=== PATIENT | male | born 1980 | race Caucasian/White ===

== ENCOUNTER 2018-03-16 14:03 | Inpatient (IN) | payer OTHER ==
[2018-03-16] MEDS ORDERED: PNEUMOC 13-VAL CONJ-DIP CRM/PF 0.5 ML DISP.SYRIN IM ONE (14:27)
--- NOTE | 2018-03-16 14:41 | HP ---
Psychiatrist Admission - Data Date of interview: 03/16/18 Admission source: 3N Identifying data: This is the first [facility] inpatient rehabilitation admission for this 38 years old single [place] male, father of a 14 years old son, unemployed with no source of income, homeless Medical History: Unremarkable. Smokes cigaretes 1 ppd Psychiatric History: Denies history of previous psychiatric treatment Physical/Sexual Abuse/Trauma History: Denies history of emotional, physical or sexual abuse as well as DV relationship. No service Additional Comment: Reports history of multiple previous misdemranor arrests Allergies/Adverse Reactions: Allergies Allergy/AdvReac Type Severity Reaction Status Date / Time No Known Allergies Allergy Verified 03/16/18 14:46 Date of last physical exam: 03/11/18 Concur with the findings of this exam: Yes - Substance Abuse/Tx History Hx Alcohol Use: Yes Hx Substance Use: Yes Substance Use Type: Alcohol (Started drinking alcohol at age 13, consumes a 6pk of beer daily. Last drank on 03/11/18), Heroin (Started using heroin at age 27, consumes 10 bags daily. Last used on 03/10/18), Marijuana (Started smoking marijuana at age 12, consumes one gram daily. Last smoked on 03/10/18) Hx Substance Use Treatment: Yes (2 previous inpt detox & 6 inpt rehab admissions ) Mental Status Exam - Mental Status Exam Alert and Oriented to: Time, Place, Person Cognitive Function: Fair Patient Appearance: Well Groomed Mood: Anxious Patient Behavior: Cooperative Speech Pattern: Clear Voice Loudness: Normal Thought Process: Intact Hallucinations: Denies Suicidal Ideation: Denies Homicidal Ideation: Denies Insight/Judgement: Fair Sleep: Poorly Appetite: Good Muscle strength/Tone: Normal Gait/Station: Normal Psychiatric Findings - Problem List ([place] 1, 2,3) (1) Alcohol dependence Current Visit: Yes Status: Acute (2) Opioid dependence Current Visit: Yes Status: Acute (3) Cannabis dependence Current Visit: Yes Status: Acute (4) Nicotine dependence Current Visit: Yes Status: Chronic (5) Substance-induced anxiety disorder Current Visit: Yes Status: Acute (6) Substance-induced sleep disorder Current Visit: Yes Status: Acute - Initial Treatment Plan Initial Treatment Plan: 1) Start Melatonin 5 mg po HS prn for insomnia. 2) Monitor progress
[2018-03-16] MEDS ORDERED: MELATONIN 5 MG TABLETS PO PRN (14:57)
[2018-03-16] MEDS ORDERED: MAG HYDROX/AL HYDROX/SIMETH 30 ML UNIT-DOSE CUP PO PRN (15:35)
[2018-03-16] MEDS ORDERED: MAGNESIUM CITRATE 300 ML BOTTLE PO PRN (15:35)
[2018-03-16] MEDS ORDERED: guaiFENesin/D-METHORPHAN HB 10 ML UNIT-DOSE CUPS PO PRN (15:35)
[2018-03-16] MEDS ORDERED: IBUPROFEN 400 MG TABLET (FP) PO PRN (15:35)
[2018-03-16] MEDS ORDERED: ACETAMINOPHEN 325 MG TABLET (FP) PO PRN (15:35)
[2018-03-16] MEDS ORDERED: MENTHOL/PHENOL 1 EACH UD MM PRN (15:35)
[2018-03-16] MEDS ORDERED: hydrOXYzine PAMOATE 50 MG CAPSULE (FP) PO PRN (15:35)
[2018-03-16] MEDS ORDERED: LOPERAMIDE HCL 2 MG CAPSULE PO PRN (15:35)
[2018-03-16] MEDS ORDERED: MAGNESIUM HYDROX 2400MG/30ML ORAL SUSPENSION 30 ML CUP PO PRN (15:35)
[2018-03-16] MEDS ORDERED: P-EPHED 60MG/TRIPROLIDI 2.5MG TABLET PO PRN (15:35)
[2018-03-16] MEDS: THIAMINE HCL 100 MG TABLET (FP) PO SCH (21:37)
[2018-03-16] MEDS: MELATONIN 5 MG TABLETS PO PRN (21:37)
[2018-03-17] MEDS: PRENATAL VITAMINS W/ FOLIC ACID TABLET (FP) PO SCH (10:42)
[2018-03-17] MEDS ORDERED: PNEUMOCOCCAL 23 VACCINE 0.5 ML VIAL IM ONE (12:00)
[2018-03-17] MEDS: NICOTINE 21 MG/24 HOURS TOPICAL PATCH TD SCH (16:56)
[2018-03-17] MEDS: THIAMINE HCL 100 MG TABLET (FP) PO SCH (21:44)
[2018-03-17] MEDS: MELATONIN 5 MG TABLETS PO PRN (21:44)
[2018-03-18] MEDS: NICOTINE 21 MG/24 HOURS TOPICAL PATCH TD SCH (10:42)
[2018-03-18] MEDS: PRENATAL VITAMINS W/ FOLIC ACID TABLET (FP) PO SCH (10:42)
[2018-03-18] MEDS: NICOTINE POLACRILEX 2 MG GUM BUC PRN ×2 (10:43→21:31)
[2018-03-18] MEDS: MELATONIN 5 MG TABLETS PO PRN (21:31)
[2018-03-18] MEDS: THIAMINE HCL 100 MG TABLET (FP) PO SCH (21:31)
[2018-03-19] MEDS: NICOTINE 21 MG/24 HOURS TOPICAL PATCH TD SCH (11:04)
[2018-03-19] MEDS: PRENATAL VITAMINS W/ FOLIC ACID TABLET (FP) PO SCH (11:04)
[2018-03-19] MEDS: NICOTINE POLACRILEX 2 MG GUM BUC PRN (11:05)
--- NOTE | 2018-03-19 11:17 | PN ---
[facility] Progress Note Note: PATIENT STATES RIGHT OUTER EAR FEELS TENDER. DENIES HEADACHE, SORE THROAT, AND FEVER. PHYSICAL EXAM: ALERT AND ORIENTED X 3. ORAL MUCOSA MOIST AND PINK, NO SWELLING OR REDNESS NOTED. BILATERAL EARS INTACT AND SYMMETRICAL. NO REDNESS OR SWELLING. +TENDERNESS. WILL INCREASE ORAL MOTRIN TO 600MG NEEDED AND CONTINUE TO MONITOR CLINICALLY. Vital Signs Temperature 97.9 F 03/19/18 06:00 Pulse Rate 70 03/19/18 06:00 Respiratory Rate 18 03/19/18 06:00 Blood Pressure 107/72 03/19/18 06:00 O2 Sat by Pulse Oximetry (%)
[2018-03-19] MEDS: IBUPROFEN 600 MG TABLET (FP) PO PRN ×2 (12:49→21:33)
[2018-03-19] MEDS: MELATONIN 5 MG TABLETS PO PRN (21:32)
[2018-03-19] MEDS: THIAMINE HCL 100 MG TABLET (FP) PO SCH (21:33)
[2018-03-20] MEDS: PRENATAL VITAMINS W/ FOLIC ACID TABLET (FP) PO SCH (10:51)
[2018-03-20] MEDS: NICOTINE 21 MG/24 HOURS TOPICAL PATCH TD SCH (10:51)
[2018-03-20] MEDS: IBUPROFEN 600 MG TABLET (FP) PO PRN ×2 (10:52→21:52)
[2018-03-20] MEDS: NICOTINE POLACRILEX 2 MG GUM BUC PRN ×2 (10:53→21:53)
[2018-03-20] MEDS: THIAMINE HCL 100 MG TABLET (FP) PO SCH (21:52)
[2018-03-20] MEDS: MELATONIN 5 MG TABLETS PO PRN (21:52)
[2018-03-21] MEDS: NICOTINE 21 MG/24 HOURS TOPICAL PATCH TD SCH (10:08)
[2018-03-21] MEDS: PRENATAL VITAMINS W/ FOLIC ACID TABLET (FP) PO SCH (10:08)
[2018-03-21] MEDS: NICOTINE POLACRILEX 2 MG GUM BUC PRN ×2 (10:09→21:29)
[2018-03-21] MEDS: IBUPROFEN 600 MG TABLET (FP) PO PRN ×2 (10:09→21:27)
[2018-03-21] MEDS: MELATONIN 5 MG TABLETS PO PRN (21:26)
[2018-03-21] MEDS: THIAMINE HCL 100 MG TABLET (FP) PO SCH (21:26)
[2018-03-22] MEDS: PRENATAL VITAMINS W/ FOLIC ACID TABLET (FP) PO SCH (10:14)
[2018-03-22] MEDS: NICOTINE POLACRILEX 2 MG GUM BUC PRN ×2 (10:15→21:38)
[2018-03-22] MEDS: NICOTINE 21 MG/24 HOURS TOPICAL PATCH TD SCH (10:15)
[2018-03-22] MEDS: IBUPROFEN 600 MG TABLET (FP) PO PRN ×2 (10:16→21:37)
[2018-03-22] MEDS: THIAMINE HCL 100 MG TABLET (FP) PO SCH (21:35)
[2018-03-22] MEDS: MELATONIN 5 MG TABLETS PO PRN (21:35)
[2018-03-23] MEDS: NICOTINE 21 MG/24 HOURS TOPICAL PATCH TD SCH (10:11)
[2018-03-23] MEDS: IBUPROFEN 600 MG TABLET (FP) PO PRN ×2 (10:12→21:38)
[2018-03-23] MEDS: PRENATAL VITAMINS W/ FOLIC ACID TABLET (FP) PO SCH (10:12)
[2018-03-23] MEDS: COLLOIDAL OATMEAL 1 BAR EACH TP PRN (10:13)
[2018-03-23] MEDS: NICOTINE POLACRILEX 2 MG GUM BUC PRN ×2 (10:14→14:39)
[2018-03-23] MEDS: THIAMINE HCL 100 MG TABLET (FP) PO SCH (21:38)
[2018-03-23] MEDS: MELATONIN 5 MG TABLETS PO PRN (21:38)
[2018-03-24] MEDS: PRENATAL VITAMINS W/ FOLIC ACID TABLET (FP) PO SCH (10:47)
[2018-03-24] MEDS: NICOTINE 21 MG/24 HOURS TOPICAL PATCH TD SCH (10:48)
[2018-03-24] MEDS: NICOTINE POLACRILEX 2 MG GUM BUC PRN ×2 (10:48→21:27)
[2018-03-24] MEDS: THIAMINE HCL 100 MG TABLET (FP) PO SCH (21:27)
[2018-03-24] MEDS: IBUPROFEN 600 MG TABLET (FP) PO PRN (21:27)
[2018-03-24] MEDS: MELATONIN 5 MG TABLETS PO PRN (21:27)
[2018-03-25] MEDS: PRENATAL VITAMINS W/ FOLIC ACID TABLET (FP) PO SCH (10:32)
[2018-03-25] MEDS: NICOTINE POLACRILEX 2 MG GUM BUC PRN ×2 (10:33→21:31)
[2018-03-25] MEDS: NICOTINE 21 MG/24 HOURS TOPICAL PATCH TD SCH (10:33)
[2018-03-25] MEDS: THIAMINE HCL 100 MG TABLET (FP) PO SCH (21:31)
[2018-03-26] MEDS: NICOTINE 21 MG/24 HOURS TOPICAL PATCH TD SCH (10:54)
[2018-03-26] MEDS: PRENATAL VITAMINS W/ FOLIC ACID TABLET (FP) PO SCH (10:55)
[2018-03-26] MEDS: NICOTINE POLACRILEX 2 MG GUM BUC PRN ×2 (10:55→21:46)
[2018-03-26] MEDS: MELATONIN 5 MG TABLETS PO PRN (21:45)
[2018-03-26] MEDS: THIAMINE HCL 100 MG TABLET (FP) PO SCH (21:45)
[2018-03-27] MEDS: NICOTINE 21 MG/24 HOURS TOPICAL PATCH TD SCH (10:37)
[2018-03-27] MEDS: PRENATAL VITAMINS W/ FOLIC ACID TABLET (FP) PO SCH (10:37)
[2018-03-27] MEDS: NICOTINE POLACRILEX 2 MG GUM BUC PRN ×2 (10:38→21:27)
[2018-03-27] MEDS: THIAMINE HCL 100 MG TABLET (FP) PO SCH (21:25)
[2018-03-27] MEDS: MELATONIN 5 MG TABLETS PO PRN (21:26)
[2018-03-28] MEDS: PRENATAL VITAMINS W/ FOLIC ACID TABLET (FP) PO SCH (10:49)
[2018-03-28] MEDS: NICOTINE 21 MG/24 HOURS TOPICAL PATCH TD SCH (10:50)
[2018-03-28] MEDS: NICOTINE POLACRILEX 2 MG GUM BUC PRN ×2 (10:50→14:38)
[2018-03-28] MEDS: IBUPROFEN 600 MG TABLET (FP) PO PRN (21:57)
[2018-03-28] MEDS: MELATONIN 5 MG TABLETS PO PRN (21:57)
[2018-03-28] MEDS: THIAMINE HCL 100 MG TABLET (FP) PO SCH (21:59)
[2018-03-29] MEDS: PRENATAL VITAMINS W/ FOLIC ACID TABLET (FP) PO SCH (10:20)
[2018-03-29] MEDS: NICOTINE 21 MG/24 HOURS TOPICAL PATCH TD SCH (10:20)
[2018-03-29] MEDS: NICOTINE POLACRILEX 2 MG GUM BUC PRN ×3 (10:21→21:27)
[2018-03-29] MEDS: THIAMINE HCL 100 MG TABLET (FP) PO SCH (21:27)
[2018-03-29] MEDS: MELATONIN 5 MG TABLETS PO PRN (21:27)
[2018-03-30] MEDS: NICOTINE 21 MG/24 HOURS TOPICAL PATCH TD SCH (10:40)
[2018-03-30] MEDS: NICOTINE POLACRILEX 2 MG GUM BUC PRN ×4 (10:40→21:51)
[2018-03-30] MEDS: PRENATAL VITAMINS W/ FOLIC ACID TABLET (FP) PO SCH (10:40)
[2018-03-30] MEDS: MELATONIN 5 MG TABLETS PO PRN (21:51)
[2018-03-30] MEDS: THIAMINE HCL 100 MG TABLET (FP) PO SCH (21:52)
[2018-03-31] MEDS: NICOTINE POLACRILEX 2 MG GUM BUC PRN (08:46)
[2018-03-31] MEDS: PRENATAL VITAMINS W/ FOLIC ACID TABLET (FP) PO SCH (10:31)
[2018-03-31] MEDS: NICOTINE 21 MG/24 HOURS TOPICAL PATCH TD SCH (10:31)
[2018-03-31] MEDS: MELATONIN 5 MG TABLETS PO PRN (21:46)
[2018-03-31] MEDS: THIAMINE HCL 100 MG TABLET (FP) PO SCH (21:46)
[2018-04-01] MEDS: PRENATAL VITAMINS W/ FOLIC ACID TABLET (FP) PO SCH (10:10)
[2018-04-01] MEDS: NICOTINE POLACRILEX 2 MG GUM BUC PRN ×3 (10:10→19:53)
[2018-04-01] MEDS: NICOTINE 21 MG/24 HOURS TOPICAL PATCH TD SCH (10:10)
[2018-04-01] MEDS: THIAMINE HCL 100 MG TABLET (FP) PO SCH (21:46)
[2018-04-01] MEDS: MELATONIN 5 MG TABLETS PO PRN (21:46)
[2018-04-02] MEDS: NICOTINE POLACRILEX 2 MG GUM BUC PRN ×5 (06:47→21:31)
[2018-04-02] MEDS: NICOTINE 21 MG/24 HOURS TOPICAL PATCH TD SCH (10:54)
[2018-04-02] MEDS: PRENATAL VITAMINS W/ FOLIC ACID TABLET (FP) PO SCH (10:54)
[2018-04-02] MEDS: IBUPROFEN 600 MG TABLET (FP) PO PRN (15:38)
[2018-04-02] MEDS: THIAMINE HCL 100 MG TABLET (FP) PO SCH (21:30)
[2018-04-02] MEDS: MELATONIN 5 MG TABLETS PO PRN (21:30)
[2018-04-03] MEDS: COLLOIDAL OATMEAL 1 BAR EACH TP PRN (08:37)
[2018-04-03] MEDS: NICOTINE POLACRILEX 2 MG GUM BUC PRN ×4 (08:37→21:32)
[2018-04-03] MEDS: NICOTINE 21 MG/24 HOURS TOPICAL PATCH TD SCH (10:29)
[2018-04-03] MEDS: PRENATAL VITAMINS W/ FOLIC ACID TABLET (FP) PO SCH (10:29)
--- NOTE | 2018-04-03 14:42 | PN ---
[facility] Progress Note Note: itchy rash on the right groin area Vital Signs Temperature 98.1 F 04/03/18 07:07 Pulse Rate 83 04/03/18 07:07 Respiratory Rate 20 04/03/18 07:07 Blood Pressure 133/79 04/03/18 07:07 O2 Sat by Pulse Oximetry (%) fungal rash right groin Plan: keep skin clean and dry top Lotriome cream continue to monitor
[2018-04-03] MEDS: CLOTRIMAZOLE/BETAMET DIPROP 15 GM TUBE TP SCH (16:57)
[2018-04-03] MEDS: THIAMINE HCL 100 MG TABLET (FP) PO SCH (21:31)
[2018-04-03] MEDS: MELATONIN 5 MG TABLETS PO PRN (21:31)
[2018-04-04] MEDS: NICOTINE POLACRILEX 2 MG GUM BUC PRN ×4 (07:52→21:35)
[2018-04-04] MEDS: NICOTINE 21 MG/24 HOURS TOPICAL PATCH TD SCH (10:35)
[2018-04-04] MEDS: PRENATAL VITAMINS W/ FOLIC ACID TABLET (FP) PO SCH (10:35)
[2018-04-04] MEDS: CLOTRIMAZOLE/BETAMET DIPROP 15 GM TUBE TP SCH (10:36)
[2018-04-04] MEDS: THIAMINE HCL 100 MG TABLET (FP) PO SCH (21:35)
[2018-04-04] MEDS: MELATONIN 5 MG TABLETS PO PRN (21:35)
[2018-04-05] MEDS: NICOTINE POLACRILEX 2 MG GUM BUC PRN ×4 (08:38→21:39)
[2018-04-05] MEDS: PRENATAL VITAMINS W/ FOLIC ACID TABLET (FP) PO SCH (10:34)
[2018-04-05] MEDS: NICOTINE 21 MG/24 HOURS TOPICAL PATCH TD SCH (10:34)
[2018-04-05] MEDS: CLOTRIMAZOLE/BETAMET DIPROP 15 GM TUBE TP SCH (10:34)
[2018-04-05] MEDS: THIAMINE HCL 100 MG TABLET (FP) PO SCH (21:38)
[2018-04-05] MEDS: MELATONIN 5 MG TABLETS PO PRN (21:39)
[2018-04-06] MEDS: NICOTINE POLACRILEX 2 MG GUM BUC PRN ×5 (08:33→21:48)
[2018-04-06] MEDS ORDERED: PT OWN MED DRAWER 7, Y5N ONE (09:12)
[2018-04-06] MEDS: CLOTRIMAZOLE/BETAMET DIPROP 15 GM TUBE TP SCH (10:28)
[2018-04-06] MEDS: NICOTINE 21 MG/24 HOURS TOPICAL PATCH TD SCH (10:29)
[2018-04-06] MEDS: PRENATAL VITAMINS W/ FOLIC ACID TABLET (FP) PO SCH (10:29)
[2018-04-06] MEDS: MELATONIN 5 MG TABLETS PO PRN (21:47)
[2018-04-06] MEDS: THIAMINE HCL 100 MG TABLET (FP) PO SCH (21:47)
[2018-04-07] MEDS: NICOTINE POLACRILEX 2 MG GUM BUC PRN ×3 (07:56→21:48)
[2018-04-07] MEDS: PRENATAL VITAMINS W/ FOLIC ACID TABLET (FP) PO SCH (10:26)
[2018-04-07] MEDS: CLOTRIMAZOLE/BETAMET DIPROP 15 GM TUBE TP SCH (10:27)
[2018-04-07] MEDS: COLLOIDAL OATMEAL 1 BAR EACH TP PRN (10:28)
[2018-04-07] MEDS: NICOTINE 21 MG/24 HOURS TOPICAL PATCH TD SCH (10:59)
[2018-04-07] MEDS: THIAMINE HCL 100 MG TABLET (FP) PO SCH (21:47)
[2018-04-07] MEDS: MELATONIN 5 MG TABLETS PO PRN (21:47)
[2018-04-08] MEDS: NICOTINE 21 MG/24 HOURS TOPICAL PATCH TD SCH (10:26)
[2018-04-08] MEDS: CLOTRIMAZOLE/BETAMET DIPROP 15 GM TUBE TP SCH (10:26)
[2018-04-08] MEDS: PRENATAL VITAMINS W/ FOLIC ACID TABLET (FP) PO SCH (10:26)
[2018-04-08] MEDS: NICOTINE POLACRILEX 2 MG GUM BUC PRN ×4 (10:27→21:38)
[2018-04-08] MEDS: MELATONIN 5 MG TABLETS PO PRN (21:37)
[2018-04-08] MEDS: THIAMINE HCL 100 MG TABLET (FP) PO SCH (21:37)
[2018-04-09] MEDS: PRENATAL VITAMINS W/ FOLIC ACID TABLET (FP) PO SCH (10:16)
[2018-04-09] MEDS: CLOTRIMAZOLE/BETAMET DIPROP 15 GM TUBE TP SCH (10:16)
[2018-04-09] MEDS: NICOTINE 21 MG/24 HOURS TOPICAL PATCH TD SCH (10:16)
[2018-04-09] MEDS: NICOTINE POLACRILEX 2 MG GUM BUC PRN ×3 (10:17→14:19)
[2018-04-09] MEDS: THIAMINE HCL 100 MG TABLET (FP) PO SCH (21:38)
[2018-04-10] MEDS: NICOTINE POLACRILEX 2 MG GUM BUC PRN ×5 (07:56→21:41)
[2018-04-10] MEDS: PRENATAL VITAMINS W/ FOLIC ACID TABLET (FP) PO SCH (10:29)
[2018-04-10] MEDS: NICOTINE 21 MG/24 HOURS TOPICAL PATCH TD SCH (10:29)
[2018-04-10] MEDS: CLOTRIMAZOLE/BETAMET DIPROP 15 GM TUBE TP SCH (10:29)
--- NOTE | 2018-04-10 13:06 | PN ---
[facility] Progress Note Note: c/o of genital warts with prior hx Vital Signs Temperature 98.1 F 04/10/18 07:24 Pulse Rate 87 04/10/18 07:24 Respiratory Rate 19 04/10/18 07:24 Blood Pressure 125/81 04/10/18 07:24 O2 Sat by Pulse Oximetry (%) Patient advised to follow up with PMD for removal.
[2018-04-10] MEDS: MELATONIN 5 MG TABLETS PO PRN (21:41)
[2018-04-10] MEDS: THIAMINE HCL 100 MG TABLET (FP) PO SCH (21:41)
[2018-04-11] MEDS: NICOTINE POLACRILEX 2 MG GUM BUC PRN ×4 (07:48→17:59)
[2018-04-11] MEDS: PRENATAL VITAMINS W/ FOLIC ACID TABLET (FP) PO SCH (10:19)
[2018-04-11] MEDS: NICOTINE 21 MG/24 HOURS TOPICAL PATCH TD SCH (10:19)
[2018-04-11] MEDS: CLOTRIMAZOLE/BETAMET DIPROP 15 GM TUBE TP SCH (10:19)
[2018-04-11] MEDS: IBUPROFEN 600 MG TABLET (FP) PO PRN (19:04)
[2018-04-11] MEDS: THIAMINE HCL 100 MG TABLET (FP) PO SCH (21:52)
[2018-04-11] MEDS: MELATONIN 5 MG TABLETS PO PRN (21:52)
[2018-04-12] MEDS: PRENATAL VITAMINS W/ FOLIC ACID TABLET (FP) PO SCH (10:32)
[2018-04-12] MEDS: NICOTINE 21 MG/24 HOURS TOPICAL PATCH TD SCH (10:32)
[2018-04-12] MEDS: NICOTINE POLACRILEX 2 MG GUM BUC PRN ×3 (10:35→17:53)
[2018-04-12] MEDS: CLOTRIMAZOLE/BETAMET DIPROP 15 GM TUBE TP SCH (11:15)
--- NOTE | 2018-04-12 13:38 | PN ---
Psychiatric Progress Note Vital Signs: Vital Signs Period Temp Pulse Resp BP Sys/Caldera Pulse Ox Last 24 Hr 98.3 F 77 18-20 113/74 Date of Session: 04/11/18 Chief Complaint:: "Discharge" HPI: Patient admitted to for opiate dependence. ROS: Unremarkable. Current Medications: Active Medications Generic Name Dose Route Start Last Admin Trade Name Freq PRN Reason Stop Dose Admin Acetaminophen 650 mg 03/16/18 15:35 Tylenol - PO Q4H PRN FEVER Al Hydroxide/Mg Hydroxide 30 ml 03/16/18 15:35 Mylanta Oral Suspension - PO Q6H PRN DYSPEPSIA Clotrimazole 1 applic 04/03/18 15:15 04/12/18 11:15 Lotrisone Cream (Small Tube) TP Not Given DAILY LIANNE Colloidal Oatmeal 1 applic 03/22/18 12:39 04/07/18 10:28 Aveeno Soap - TP 1 bar DAILY PRN Administration HYGEINE Eucalyptus/Menthol/Phenol/Sorbitol 1 each 03/16/18 15:35 Cepastat Lozenge - MM Q4H PRN SORE THROAT Guaifenesin 10 ml 03/16/18 15:35 Robitussin Dm - PO Q6H PRN COUGH Hydroxyzine Pamoate 50 mg 03/16/18 15:35 Vistaril - PO Q4H PRN AGITATION Ibuprofen 600 mg 03/19/18 11:09 04/11/18 19:04 Motrin - PO 600 mg Q6H PRN Administration PAIN LEVEL 6-10 Loperamide HCl 4 mg 03/16/18 15:35 Imodium - PO Q6H PRN DIARRHEA Magnesium Citrate 300 ml 03/16/18 15:35 Citroma - PO Q48H PRN CONSTIPATION Magnesium Hydroxide 30 ml 03/16/18 15:35 Milk Of Magnesia - PO DAILY PRN CONSTIPATION Melatonin 5 mg 03/16/18 22:00 04/11/18 21:52 Melatonin PO 5 mg HS PRN Administration INSOMNIA Nicotine 21 mg 03/17/18 16:45 04/12/18 10:32 Nicoderm Patch - TD Not Given DAILY LIANNE Nicotine Polacrilex 2 mg 03/17/18 22:32 04/12/18 12:37 Nicorette Gum - BUC 2 mg Q2H PRN Administration NICOTINE REPLACEMENT RX Multivit/Folic Acid/Iron 1 tab 03/17/18 10:00 04/12/18 10:32 Vitamins (Sjr) - PO 1 tab DAILY LIANNE Administration Pseudoephedrine/Triprolidine 1 combo 03/16/18 15:35 Actifed - PO TID PRN NASAL CONGESTION Thiamine HCl 100 mg 03/16/18 22:00 04/11/18 21:52 Vitamin B1 - PO 100 mg HS LIANNE Administration Medication(s) Change(s): No. Current Side Effect: No Lab tests ordered: No Lab tests reviewed: Yes Provider note:: Patient will complete the rehabilitation program on 04/12/18. He has met his treatment goals and is able to identifty behaviors that contribute to relapsing. Through participation of the program patient has learned the importance of changing his behavior and the need for better structure in his life. Pt. will be discharged to "[facility]" in [place], [place]. Pt. is stable for discharge on 04/12/18. Total face to face time:: 35 Mental Status Exam - Mental Status Exam Alert and Oriented to: Time, Place, Person Cognitive Function: Good Patient Appearance: Well Groomed Mood: Hopeful Affect: Normal Range Patient Behavior: Appropriate, Cooperative Speech Pattern: Clear, Appropriate Voice Loudness: Normal Thought Process: Intact, Goal Oriented Thought Disorder: Not Present Hallucinations: Denies Suicidal Ideation: Denies Homicidal Ideation: Denies Insight/Judgement: Good Sleep: Well Appetite: Good Muscle strength/Tone: Normal Gait/Station: Normal Psychiatric Treatment Plan - Problem List (1) Alcohol dependence Current Visit: Yes (2) Cannabis dependence Current Visit: Yes (3) Opioid dependence Current Visit: Yes (4) Substance-induced anxiety disorder Current Visit: Yes (5) Substance-induced sleep disorder Current Visit: Yes (6) Nicotine dependence Current Visit: Yes
[2018-04-12] MEDS: THIAMINE HCL 100 MG TABLET (FP) PO SCH (21:56)
[2018-04-12] MEDS: MELATONIN 5 MG TABLETS PO PRN (21:56)
[2018-04-13 07:26] VITALS: BP 134/87; PULSE 81; TEMP 97.9
[2018-04-13] MEDS: NICOTINE 21 MG/24 HOURS TOPICAL PATCH TD SCH (09:56)
[2018-04-13] MEDS: CLOTRIMAZOLE/BETAMET DIPROP 15 GM TUBE TP SCH (09:56)
[2018-04-13] MEDS: PRENATAL VITAMINS W/ FOLIC ACID TABLET (FP) PO SCH (09:56)
== END 2018-04-13 10:46 | disposition home or self-care (01) | DRG 772 ==
LOC: YASAS 14:03 → Y5N 14:04
PROVIDERS: ADMIT Psychiatry & Neurology Psychiatry; ATTEND Psychiatry & Neurology Psychiatry
PROC: HZ42ZZZ Group Counseling for Substance Abuse Treatment, Cognitive-Behavioral (ICD-10-PCS; principal; 2018-03-16)
DX: F11.20 Opioid dependence, uncomplicated (principal); F10.20 Alcohol dependence, uncomplicated; F12.20 Cannabis dependence, uncomplicated; F17.210 Nicotine dependence, cigarettes, uncomplicated; F19.280 Other psychoactive substance dependence with psychoactive substance-induced anxiety disorder; F19.282 Other psychoactive substance dependence with psychoactive substance-induced sleep disorder; R21 Rash and other nonspecific skin eruption; H92.09 Otalgia, unspecified ear
CPT/HCPCS: 90732; G0009

== ENCOUNTER 2019-10-03 15:17 | Inpatient (IN) | payer OTHER, BC ==
[2019-10-03 19:51] VITALS: BMI 25.5
--- NOTE | 2019-10-03 20:20 | HP ---
COWS - Scale Resting Pulse: 1= [place] 81-100 Sweatin= Chills/Flushing Restless Observation: 1= Difficult to Sit Still Pupil Size: 0= Normal to Room Light Bone or Joint Aches: 4=Acute Joint/Muscle Pain Runny Nose/ Eye Tearin= Runny Nose/Eyes GI Upset > 30mins: 1= Stomach Cramp Tremor Observation: 1= Tremor [place], Not Seen Yawning Observation: 1= 1-2x During Session Anxiety or Irritability: 2=Irritable/Anxious Goose Flesh Skin: 5=Prominent Piloe[place] COWS Score: 19 CIWA Score - Admission Criteria [facility]ASAS Guidelines: Admission for Medically Managed Detox: Requires at least one of the followin. CIWA greater than 12 2. Seizures within the past 24 hours 3. Delirium tremens within the past 24 hours 4. Hallucinations within the past 24 hours 5. Acute intervention needed for co occurring medical disorder 6. Acute intervention needed for co occurring psychiatric disorder 7. Severe withdrawal that cannot be handled at a lower level of care (continued vomiting, continued diarrhea, abnormal vital signs) requiring intravenous medication and/or fluids 8. Admitting History and Physical - Smoking History Smoking history: Current every day smoker Have you smoked in the past 12 months: Yes Aproximately how many cigarettes per day: 20 If you are a former smoker, when did you quit?: 03/10/18 - Alcohol/Substance Use Hx Alcohol Use: Yes Admission [facility] Chief Complaint: seeking heroin detox Allergies/Adverse Reactions: Allergies Allergy/AdvReac Type Severity Reaction Status Date / Time No Known Allergies Allergy Verified 10/03/19 19:45 History of Present Illness: HERE FOR HEROIN DETOX. ALSO REPORTS ALCOHOL DEPENDENCE. HE IS KNOWN TO THIS PROGRAM LAST HERE 03/2018. CLIENT REPORTS DAILY ALCOHOL INTAKE. STATES DRINKS ATLEAST 1 LITER A DAY. STATES HE HAS BEEN DRINKING ALL DAY UP TILL HE WAS BROUGHT IN FOR TXMENT. CLIENT MEDINA IS 0. WHEN ASKED CLIENT THEN DENIES DRINKING MUCH AND STATES HEROIN IS HIS DRUG OF CHOICE. REPORTS DAILY USE. VIA IV. LAST USE 1PM TODAY 4 BAGS. PRESENTS WITH C/O WORSENING WITHDRAWAL SX'S. DENIES HX/O DRUG OVERDOSE, BLACKOUTS, SZ D/O. CLIENT REPORTS MAINTAINING ABSTINENCE SINCE DC IN 03/2018 RELAPSING THIS PAST 07/2019. LIVES ALONE, MANDIE, DENIES LEGALS Exam Limitations: No Limitations - Ebola screening Have you traveled outside of the country in the last 21 days: No Have you had contact with anyone from an Ebola affected area: No - Review of Systems Constitutional: Chills, Malaise, Night Sweats, Unexplained wgt Loss EENT: reports: Blurred Vision (GLASSES), Nose Congestion, Other (RINORRHEA) Respiratory: reports: No Symptoms reported Cardiac: reports: No Symptoms Reported GI: reports: Constipated (LAST BM 1 DAY AGO), Vomiting, Abdominal cramping : reports: No Symptoms Reported Musculoskeletal: reports: Back Pain, Joint Pain, Neck Pain Integumentary: reports: Other (TRACK BELL) Neuro: reports: Headache Endocrine: reports: No Symptoms Reported Hematology: reports: No Symptoms Reported Psychiatric: reports: Orientated x3 Other Systems: Reviewed and Negative Patient History - Patient Medical History Hx Anemia: No Hx Asthma: No Hx Chronic Obstructive Pulmonary Disease (COPD): No Hx Cancer: No Hx Cardiac Disorders: No Hx Congestive Heart Failure: No Hx Hypertension: No Hx Hypercholesterolemia: No Hx Pacemaker: No HX Cerebrovascular Accident: No Hx Seizures: No Hx Dementia: No Hx Diabetes: No Hx Gastrointestinal Disorders: No Hx Liver Disease: No Hx Genitourinary Disorders: No Hx Sexually Transmitted Disorders: No Hx Renal Disease (ESRD): No Hx Thyroid Disease: No Hx Human Immunodeficiency Virus (HIV): No Hx Hepatitis C: No Hx Depression: No Hx Suicide Attempt: No Hx Bipolar Disorder: No Hx Schizophrenia: No Other Medical History: DENIES - Patient Surgical History Past Surgical History: No Hx Neurologic Surgery: No Hx Cataract Extraction: No Hx Cardiac Surgery: No Hx Lung Surgery: No Hx Breast Surgery: No Hx Breast Biopsy: No Hx Abdominal Surgery: No Hx Appendectomy: No Hx Cholecystectomy: No Hx Genitourinary Surgery: No Hx Section: No Hx Orthopedic Surgery: No Anesthesia Reaction: No - PPD History Previous Implant?: Yes Documented Results: Negative w/proof Implanted On Prior R Admission?: Yes Date: 03/13/18 Results: 0 mm PPD to be Administered?: Yes - Smoking Cessation Smoking history: Former smoker Have you smoked in the past 12 months: No Aproximately how many cigarettes per day: 20 If you are a former smoker, when did you quit?: 03/18/2018 Cigars Per Day: 20 Hx Chewing Tobacco Use: No Initiated information on smoking cessation: No - Substance & Tx. History Hx Alcohol Use: Yes ([employer]ISTORIAN ? ABUSE) Hx Substance Use: Yes Substance Use Type: Heroin Hx Substance Use Treatment: Yes ([facility]) - Substances abused Heroin Substance route: Injection Frequency: Daily Amount used: 20 Age of first use: 27 Date of last use: 10/03/19 (4 BAGS) Admission Physical Exam [facility] - Vital Signs Vital Signs: Vital Signs - 24 hr 10/03/19 19:45 Temperature 98.2 F Pulse Rate 84 Respiratory 16 Rate Blood Pressure 130/80 - Physical General Appearance: Yes: Moderate Distress, Tremorous, Sweating, Anxious HEENTM: Yes: EOMI, Normocephalic, Normal Voice, ZOHRA, Pharynx Normal, Rhinorrhea Respiratory: Yes: Chest Non-Tender, Lungs Clear, Normal Breath Sounds, No Respiratory Distress, No Accessory Muscle Use Neck: Yes: No masses,lesions,Nodules, Supple, Trachea in good position Breast: Yes: Breasts Symetrical Cardiology: Yes: Regular Rhythm, Regular Rate, S1, S2 Abdominal: Yes: Non Tender, Soft, Increased Bowel Sounds Genitourinary: Yes: Within Normal Limits Back: Yes: Normal Inspection Musculoskeletal: Yes: full range of Motion, Gait Steady Extremities: Yes: Normal Range of Motion, Non-Tender, Tremors Neurological: Yes: Fully Oriented, Alert, Motor Strength 5/5 Integumentary: Yes: Cold, Clammy, Track Bell (TO BOTH ARMS), Other (PILORECTION ) Lymphatic: Yes: Within Normal Limits - Diagnostic (1) Alcohol abuse Current Visit: Yes Status: Chronic (2) Opioid dependence with withdrawal Current Visit: Yes Status: Acute (3) Substance-induced anxiety disorder Current Visit: Yes Status: Suspected (4) Nicotine dependence Current Visit: Yes Status: Chronic Qualifiers: Nicotine product type: cigarettes Substance use status: uncomplicated Qualified Code(s): F17.210 - Nicotine dependence, cigarettes, uncomplicated (5) IVDU (intravenous drug user) Current Visit: Yes Status: Acute (6) Track bell due to intravenous drug abuse Current Visit: Yes Status: Acute Cleared for Admission [facility] - Detox or Rehab [facility] Level of Care: Medically Managed Detox Regimen/Protocol: Methadone Claeared for Rehab Admission: No Breathalyzer - Breathalyzer Breathalyzer: 0 Inpatient Rehab Admission - Rehab Decision to Admit Inpatient rehab admission?: No
[2019-10-03] MEDS ORDERED: hydrOXYzine PAMOATE 25 MG CAPSULE (FP) PO PRN (20:26)
[2019-10-03] MEDS ORDERED: MENTHOL/PHENOL 1 EACH UD MM PRN (20:26)
[2019-10-03] MEDS ORDERED: METHOCARBAMOL 500 MG TABLET PO PRN (20:26)
[2019-10-03] MEDS ORDERED: MAGNESIUM HYDROX 2400MG/30ML ORAL SUSPENSION 30 ML CUP PO PRN (20:26)
[2019-10-03] MEDS ORDERED: ACETAMINOPHEN 325 MG TABLET (FP) PO PRN ×2 (20:26)
[2019-10-03] MEDS ORDERED: cloNIDine HCL 0.1 MG TABLET PO PRN (20:26)
[2019-10-03] MEDS ORDERED: BISMUTH SUBSALICYLATE 524 MG/30 ML UD PO PRN (20:26)
[2019-10-03] MEDS ORDERED: guaiFENesin 200 MG/10 ML 10 ML UNIT-DOSE CUPS PO PRN (20:26)
[2019-10-03] MEDS ORDERED: DICYCLOMINE HCL 10 MG CAPSULE PO PRN (20:26)
[2019-10-03] MEDS ORDERED: P-EPHED 60MG/TRIPROLIDI 2.5MG TABLET PO PRN (20:26)
[2019-10-03] MEDS ORDERED: MAGNESIUM CITRATE 300 ML BOTTLE PO PRN (20:26)
[2019-10-03] MEDS ORDERED: NALOXONE HCL 0.4 MG/ML VIAL IM PRN (20:26)
[2019-10-03] MEDS ORDERED: IBUPROFEN 400 MG TABLET (FP) PO PRN (20:26)
[2019-10-03] MEDS ORDERED: ONDANSETRON *ODT* 4 MG TABLET SL PRN (20:26)
[2019-10-03] MEDS ORDERED: MAG HYDROX/AL HYDROX/SIMETH 30 ML UNIT-DOSE CUP PO PRN (20:26)
[2019-10-03] MEDS ORDERED: clonazePAM 0.5 MG TABLET PO PRN (20:32)
[2019-10-03] MEDS ORDERED: METHADONE HCL 10 MG TABLET (FOR DETOX USE ONLY) PO ONE (21:00)
[2019-10-03] MEDS: THIAMINE HCL 100 MG TABLET (FP) PO SCH (21:34)
[2019-10-04] MEDS ORDERED: METHADONE HCL 10 MG TABLET (FOR DETOX USE ONLY) ONE (09:17)
[2019-10-04] MEDS ORDERED: METHADONE HCL 5 MG TABLET (FOR DETOX USE ONLY) ONE (09:17)
[2019-10-04 09:29] LABS: HEMATOCRIT 41.8 % (35.4-49); HEMOGLOBIN 14.9 GM/dL (11.7-16.9); MCH 30.9 pg (25.7-33.7); MCHC 35.6 g/dl (32.0-35.9); MEAN CELL VOLUME 86.8 fl (80-96); MEAN PLT VOLUME 10.8 fl (7.5-11.1); PLATELET COUNT 172 K/MM3 (134-434); RBC 4.81 M/mm3 (4.00-5.60); RDW 13.5 % (11.9-15.9); WHITE BLOOD COUNT 7.9 K/mm3 (4.0-10.0)
[2019-10-04 09:42] LABS: ALBUMIN 3.6 g/dl (3.4-5.0); BLOOD UREA NITROGEN 12.4 mg/dL (7-18); CALCIUM 9.8 mg/dL (8.5-10.1); CREATININE 0.9 mg/dL (0.55-1.3); POTASSIUM 4.1 mmol/L (3.5-5.1); TOT PROT 6.4 g/dl (6.4-8.2)
[2019-10-04] MEDS ORDERED: METHADONE (DETOX) 20 MG, METHADONE (DETOX) 5 MG PO ONE (10:00)
--- NOTE | 2019-10-04 10:23 | PN ---
[facility] COWS - Scale Resting Pulse: 1= [place] 81-100 Sweatin= Chills/Flushing Restless Observation: 1= Difficult to Sit Still Pupil Size: 0= Normal to Room Light Bone or Joint Aches: 2= Severe Diffuse Aches Runny Nose/ Eye Tearin= Runny Nose/Eyes GI Upset > 30mins: 0= None Tremor Observation of Outstretched Hands: 1= Tremor [place], Not Seen Yawning Observation: 1= 1-2x During Session Anxiety or Irritability: 2=Irritable/Anxious Goose Flesh Skin: 0=Smooth Skin COWS Score: 11 S Progress Note (SOAP) Subjective: sweats shakes tired body aches Objective: 10/04/19 10:22 Vital Signs Temperature 99.3 F 10/04/19 09:25 Pulse Rate 88 10/04/19 09:25 Respiratory Rate 17 10/04/19 09:25 Blood Pressure 115/78 10/04/19 09:25 O2 Sat by Pulse Oximetry (%) Laboratory Tests 10/04/19 10/04/19 08:20 08:20 WBC 7.9 RBC 4.81 Hgb 14.9 Hct 41.8 MCV 86.8 MCH 30.9 MCHC 35.6 RDW 13.5 Plt Count 172 D MPV 10.8 Sodium 139 Potassium 4.1 Chloride 102 Carbon Dioxide 33 H Anion Gap 4 L BUN 12.4 Creatinine 0.9 Est GFR (CKD-EPI)AfAm 126.02 Est GFR (CKD-EPI)NonAf 108.73 Random Glucose 97 Calcium 9.8 Total Bilirubin 1.0 AST 9 L ALT 22 Alkaline Phosphatase 74 Total Protein 6.4 Albumin 3.6 aaox3 ambulating no acute distress Assessment: 10/04/19 10:22 withdrawals Plan: continue detox increase fluids
[2019-10-04] MEDS: PRENATAL VITAMINS W/ FOLIC ACID TABLET (FP) PO SCH (10:32)
--- NOTE | 2019-10-04 13:09 | EKG ---
Test Reason : Blood Pressure : / mmHG Vent. Rate : 065 BPM Atrial Rate : 065 BPM P-R Int : 168 ms QRS Dur : 104 ms QT Int : 376 ms P-R-T Axes : 044 063 036 degrees QTc Int : 391 ms NORMAL SINUS RHYTHM NONSPECIFIC INTRAVENTRICULAR CONDUCTION DEFECT WHEN COMPARED WITH ECG OF 11-MAR-2018 19:04, NON-SPECIFIC CHANGE IN ST SEGMENT IN INFERIOR LEADS Confirmed by MICHAEL GUILLEN MD ([id number]) on 10/04/2019 1:09:28 PM Referred By: Confirmed By:MICHAEL GUILLEN MD
[2019-10-04] MEDS: THIAMINE HCL 100 MG TABLET (FP) PO SCH (22:07)
[2019-10-04] MEDS: MELATONIN 5 MG TABLETS PO PRN (22:08)
[2019-10-05] MEDS ORDERED: METHADONE HCL 10 MG TABLET (FOR DETOX USE ONLY) PO ONE (10:00)
[2019-10-05] MEDS: PRENATAL VITAMINS W/ FOLIC ACID TABLET (FP) PO SCH (10:12)
--- NOTE | 2019-10-05 14:37 | PN ---
[facility] COWS - Scale Resting Pulse: 0= [place] 80 or Below Sweatin= Chills/Flushing Restless Observation: 1= Difficult to Sit Still Pupil Size: 0= Normal to Room Light Bone or Joint Aches: 2= Severe Diffuse Aches Runny Nose/ Eye Tearin= None GI Upset > 30mins: 0= None Tremor Observation of Outstretched Hands: 0= None Yawning Observation: 1= 1-2x During Session Anxiety or Irritability: 2=Irritable/Anxious Goose Flesh Skin: 0=Smooth Skin COWS Score: 7 [facility] Progress Note (SOAP) Subjective: Body Aches, Anxious, Sweating. Objective: PATIENT A & O X 3. IN NO ACUTE DISTRESS. 10/05/19 14:32 Vital Signs Temperature 98.4 F 10/05/19 09:16 Pulse Rate 57 L 10/05/19 09:16 Respiratory Rate 18 10/05/19 09:16 Blood Pressure 111/72 10/05/19 09:16 O2 Sat by Pulse Oximetry (%) Laboratory Tests 10/04/19 10/04/19 10/04/19 08:10 08:20 08:20 WBC 7.9 RBC 4.81 Hgb 14.9 Hct 41.8 MCV 86.8 MCH 30.9 MCHC 35.6 RDW 13.5 Plt Count 172 D MPV 10.8 Sodium 139 Potassium 4.1 Chloride 102 Carbon Dioxide 33 H Anion Gap 4 L BUN 12.4 Creatinine 0.9 Est GFR (CKD-EPI)AfAm 126.02 Est GFR (CKD-EPI)NonAf 108.73 Random Glucose 97 Calcium 9.8 Total Bilirubin 1.0 AST 9 L ALT 22 Alkaline Phosphatase 74 Total Protein 6.4 Albumin 3.6 RPR Titer Nonreactive LABS NOTED. Assessment: 10/05/19 14:45 WITHDRAWAL SYMPTOMS. Plan: CONTINUE DETOX.
[2019-10-05] MEDS: MELATONIN 5 MG TABLETS PO PRN (22:11)
[2019-10-05] MEDS: THIAMINE HCL 100 MG TABLET (FP) PO SCH (22:11)
[2019-10-06] MEDS ORDERED: METHADONE HCL 10 MG TABLET (FOR DETOX USE ONLY) ONE (09:23)
[2019-10-06] MEDS ORDERED: METHADONE HCL 5 MG TABLET (FOR DETOX USE ONLY) ONE (09:23)
[2019-10-06 09:27] VITALS: BP 100/67; PULSE 64; TEMP 98.1
[2019-10-06] MEDS ORDERED: METHADONE (DETOX) 10 MG, METHADONE (DETOX) 5 MG PO ONE (10:00)
[2019-10-06] MEDS: PRENATAL VITAMINS W/ FOLIC ACID TABLET (FP) PO SCH (10:47)
--- NOTE | 2019-10-06 11:26 | PN ---
[facility] Progress Note Note: pt states he needs to leave now and get ready for work tomorrow. pt was advised to stay and complete his detox and prevent seizures, dts, od, loss however pt chose to sign out AMA.
--- NOTE | 2019-10-06 12:51 | DS ---
[facility] Detox Discharge Summary Admission Date: 10/03/19 - History Present History: Cannabis Dependence, Opioid Dependence - Physical Exam Results Vital Signs: Vital Signs Temperature 98.1 F 10/06/19 09:27 Pulse Rate 64 10/06/19 09:27 Respiratory Rate 18 10/06/19 09:27 Blood Pressure 100/67 10/06/19 09:27 O2 Sat by Pulse Oximetry (%) - Treatment Hospital Course: Discharged Condition Good, Rehab Referral Accepted - Medication Discharge Medications: Ambulatory Orders NK [No Known Home Medication] 03/11/18 - Diagnosis (1) IVDU (intravenous drug user) Current Visit: Yes Status: Chronic (2) Opioid dependence with withdrawal Current Visit: Yes Status: Chronic (3) Track meng due to intravenous drug abuse Current Visit: Yes Status: Chronic (4) Nicotine dependence Current Visit: Yes Status: Chronic Qualifiers: Nicotine product type: cigarettes Substance use status: uncomplicated Qualified Code(s): F17.210 - Nicotine dependence, cigarettes, uncomplicated (5) Substance-induced anxiety disorder Current Visit: Yes Status: Suspected (6) Opioid dependence Current Visit: Yes Status: Chronic Qualifiers: Substance use status: uncomplicated Qualified Code(s): F11.20 - Opioid dependence, uncomplicated (7) Substance-induced sleep disorder Current Visit: No Status: Acute - AMA Did Patient Leave Against Medical Advice: Yes
[2019-10-07] MEDS ORDERED: METHADONE HCL 10 MG TABLET (FOR DETOX USE ONLY) PO ONE (10:00)
[2019-10-08] MEDS ORDERED: METHADONE HCL 5 MG TABLET (FOR DETOX USE ONLY) PO ONE (06:00)
== END 2019-10-06 12:04 | disposition left against medical advice (07) | DRG 770 ==
LOC: YASAS 15:17 → Y6N 20:43
PROVIDERS: ADMIT Allergy & Immunology; ATTEND Allergy & Immunology
PROC: HZ2ZZZZ Detoxification Services for Substance Abuse Treatment (ICD-10-PCS; principal; 2019-10-03)
DX: F11.23 Opioid dependence with withdrawal (principal); F10.10 Alcohol abuse, uncomplicated; F17.210 Nicotine dependence, cigarettes, uncomplicated; F19.280 Other psychoactive substance dependence with psychoactive substance-induced anxiety disorder; F19.282 Other psychoactive substance dependence with psychoactive substance-induced sleep disorder; L90.5 Scar conditions and fibrosis of skin
CPT/HCPCS: 36415; 80053; 85027; 86593; 93005; 93010